=== PATIENT | male | born 1980 | race Caucasian/White ===

== ENCOUNTER 2016-11-06 09:35 | Emergency (ER) | payer MEDICARE ==
[~2016-11-06] VITALS: Ht 190.5 cm; Wt 95.3 kg
[~2016-11-06 09:35] MED LIST: ACYCLOVIR400 MG PO; ALBUTEROL0.09 MG/A1 INH; AMOXICILLIN500 M2 PO; ATARAX,VISTARIL50 MG PO; BACTRIM DS 8001 TA1 PO; BACTROBAN OINT22 GM PO; BAYER ASPIRIN C81 MG PO; CATAFLAM50 MG PO; CIPROFLOXACIN500 MG PO; Cleocin150 MG PO; DICLOFENAC POTA50 MG PO; EPI-PEN1 MG/ML MR; FLEXERIL10 MG PO; FLEXERIL5 MG PO; HYDROCODONE BIT1 T11 PO; HYDROXYZINE PAM50 MG PO; IBU800 MG PO; KEFLEX500 MG PO; LIDEX 0.05% CRE15 GM T; MEDROL DOSEPAK4 MG PO; MOTRIN800 MG PO; NAPROSYN500 MG PO; NKHM; ONDANSETRON HYDR4 M1 PO; PENICILLIN-VK500 MG PO; PEPCID20 MG PO; PERCOCET 325 MG1 TA5 PO; PREDNISONE50 MG PO; PREVACID30 MG PO; ROBAXIN750 MG PO; SINEMET 25-100M1 TAB PO; SKELAXIN400 MG PO; TRAMADOL HCL50 MG PO; ULTRAM50 MG PO; VALIUM5 MG PO; VIBRAMYCIN100 MG PO; VICODIN 5/500 505 MG PO; VICODIN 500 MG-1 TAB PO; VICODIN ES 7501 TAB PO; ZANTAC150 MG PO; ZOFRAN ODT4 MG SL; ZOVIRAX400 MG PO
[2016-11-06] MEDS ORDERED: Bactroban Oint22 GM T (09:45)
[2016-11-06] MEDS ORDERED: KEFLEX500 M1 PO (09:45)
[2016-11-06] MEDS ORDERED: Bactrim DS PO (09:45)
== END 2016-11-06 10:05 | disposition home or self-care (01) ==
LOC: ED 09:35
DX: L02.414 Cutaneous abscess of left upper limb (principal); R03.0 Elevated blood-pressure reading, without diagnosis of hypertension; F17.200 Nicotine dependence, unspecified, uncomplicated

== ENCOUNTER 2020-09-25 15:16 | Emergency (ER) | payer MEDICARE, MEDICAID ==
[~2020-09-25] VITALS: Wt 95.3 kg
[~2020-09-25 15:16] MED LIST changes: +Bactrim DS PO; +Bactroban Oint22 GM T; +KEFLEX500 M1 PO
[2020-09-25] MEDS ORDERED: PREDNISONE10 MG PO ×2 (17:29)
== END 2020-09-25 17:38 | disposition home or self-care (01) ==
LOC: ED 15:16
DX: L23.1 Allergic contact dermatitis due to adhesives (principal); R07.81 Pleurodynia; F17.200 Nicotine dependence, unspecified, uncomplicated; Z79.2 Long term (current) use of antibiotics; Z79.899 Other long term (current) drug therapy; Z98.890 Other specified postprocedural states

== ENCOUNTER 2020-10-21 02:41 | Emergency (ER) | payer MEDICARE, MEDICAID ==
[~2020-10-21] VITALS: Ht 190.5 cm; Wt 99.8 kg
[~2020-10-21 02:41] MED LIST changes: +PREDNISONE10 MG PO
== END 2020-10-21 05:30 | disposition home or self-care (01) ==
LOC: ED 02:41
DX: L23.7 Allergic contact dermatitis due to plants, except food (principal); F32.9 Major depressive disorder, single episode, unspecified; F41.9 Anxiety disorder, unspecified; Z79.2 Long term (current) use of antibiotics; Z79.899 Other long term (current) drug therapy; Z98.890 Other specified postprocedural states

== ENCOUNTER 2020-10-24 17:37 | Emergency (ER) | payer MEDICARE, MEDICAID ==
[~2020-10-24] VITALS: Ht 190.5 cm; Wt 95.3 kg
[2020-10-24] MEDS ORDERED: DOXYCYCLINE100 M3 PO (21:10)
[2020-10-24] MEDS ORDERED: IBUPROFEN600 MG PO (21:10)
== END 2020-10-25 00:10 | disposition home or self-care (01) ==
LOC: ED 17:37
DX: L02.416 Cutaneous abscess of left lower limb (principal); F17.200 Nicotine dependence, unspecified, uncomplicated

== ENCOUNTER 2020-12-30 13:56 | Emergency (ER) | payer MEDICARE, MEDICAID ==
[~2020-12-30] VITALS: Ht 190.5 cm; Wt 95.3 kg
[~2020-12-30 13:56] MED LIST changes: +DOXYCYCLINE100 M3 PO; +IBUPROFEN600 MG PO
== END 2020-12-30 17:49 | disposition left against medical advice (07) ==
LOC: ED 13:56
DX: R10.9 Unspecified abdominal pain (principal); Z53.21 Procedure and treatment not carried out due to patient leaving prior to being seen by health care provider

== ENCOUNTER 2021-01-10 09:31 | Emergency (ER) | payer MEDICARE, MEDICAID ==
[~2021-01-10] VITALS: Ht 190.5 cm; Wt 90.7 kg
[2021-01-10] MEDS ORDERED: MIRALAX POWDER17 G1 PO (10:04)
[2021-01-10] MEDS ORDERED: NAPROXEN250 MG PO (10:04)
[2021-01-10] MEDS ORDERED: TYLENOL325 M1 PO (10:04)
== END 2021-01-10 11:00 | disposition home or self-care (01) ==
LOC: ED 09:31
DX: G89.29 Other chronic pain (principal); R10.32 Left lower quadrant pain; F11.90 Opioid use, unspecified, uncomplicated

== ENCOUNTER 2021-08-14 21:23 | Emergency (ER) | payer MEDICARE, MEDICAID ==
[~2021-08-14 21:23] MED LIST changes: +MIRALAX POWDER17 G1 PO; +NAPROXEN250 MG PO; +TYLENOL325 M1 PO
[2021-08-14] MEDS ORDERED: CLINDAMYCIN HC300 MG PO (23:45)
== END 2021-08-14 23:58 | disposition left against medical advice (07) ==
LOC: ED 21:23
DX: L03.114 Cellulitis of left upper limb (principal)

== ENCOUNTER 2021-09-23 08:15 | Inpatient (IN) | payer MEDICARE, MEDICAID ==
[~2021-09-23] VITALS: Ht 190.5 cm; Wt 84.2 kg
[~2021-09-23 08:15] MED LIST changes: +CLINDAMYCIN HC300 MG PO
[2021-09-23 08:24] VITALS: BP 132/93
[2021-09-23 09:34] LABS: BASO % 0.2 % (0.0-1.0); EOS % 0.3 % (1.0-4.0); HEMATOCRIT 39.8 % (42.0-52.0); LYMPH # 1.1 10*3/uL (1.3-4.4); LYMPH % 7.7 % (27.0-41.0); MEAN CELL VOLUME 85.8 fl (80.0-94.0); MEAN CORPUSCULAR HGB 28.4 pg (27.0-31.0); MEAN CORPUSCULAR HGB CONC 33.2 g/dl (33.0-37.0); MEAN PLATELET VOLUME 10.7 fl (9.6-12.3); MONO # 0.7 10*3/uL (0.1-1.0); MONO % 4.8 % (3.0-9.0); NEUT # 12.4 10*3/uL (2.3-7.9); NEUT % 86.7 % (47.0-73.0); PLATELET COUNT AUTOMATED 192 10*3/uL (130-400); RED BLOOD COUNT 4.64 10*6/uL (4.50-5.90); RED CELL DISTRI WIDTH 13.2 % (0-14.5); WHITE BLOOD COUNT 14.3 10*3/uL (4.8-10.8)
[2021-09-23 09:44] LABS: ACT PARTIAL THROMBO TIME 32.8 SECONDS (20.0-32.1)
[2021-09-23 09:50] LABS: ALKALINE PHOSPHATASE 92 U/L (45-117); BUN 15 mg/dl (7-24); CHLORIDE 102 mmol/L (98-107); CREATININE 0.65 mg/dL (0.70-1.30); LIPASE 83 U/L (73-393); POTASSIUM 3.7 mmol/L (3.5-5.1); SGOT/AST 26 IU/L (3-35); SGPT/ALT 33 U/L (12-78); SODIUM 134 mmol/L (136-145)
[2021-09-23 12:38] VITALS: BP 114/59
[2021-09-23 13:16] LABS: CSF RBC < 1000 /uL; CSF WBC 1 /uL
[2021-09-23 13:24] LABS: CSF GLUCOSE 59 mg/dL (40-70); CSF TOTAL PROTEIN 55.5 mg/dL (15-45)
[2021-09-23 13:51] LABS: CLARITY CLEAR; COLOR COLORLESS; CSF LYMPHOCYTES 74 % (40-80); CSF MONOCYTES 26 % (15-45)
[2021-09-23 16:17] VITALS: BP 124/71
[2021-09-23 20:03] VITALS: BP 141/85
[2021-09-23 21:30] VITALS: BP 132/75
[2021-09-24] VITALS: BP 105/62
[2021-09-24 06:27] LABS: ACT PARTIAL THROMBO TIME 32.5 SECONDS (20.0-32.1); INTERNATIONAL NORM RATIO 1.1 (2.0-3.5)
[2021-09-24 06:28] LABS: HEMATOCRIT 40.5 % (42.0-52.0); MEAN CORPUSCULAR HGB 28.2 pg (27.0-31.0); MEAN CORPUSCULAR HGB CONC 32.8 g/dl (33.0-37.0); PLATELET COUNT AUTOMATED 204 10*3/uL (130-400); RED BLOOD COUNT 4.71 10*6/uL (4.50-5.90); RED CELL DISTRI WIDTH 13.3 % (0-14.5); WHITE BLOOD COUNT 17.6 10*3/uL (4.8-10.8)
[2021-09-24 06:39] LABS: MANUAL DIFF REFLEX YES
[2021-09-24 06:43] LABS: ALKALINE PHOSPHATASE 67 U/L (45-117); BUN 14 mg/dl (7-24); CHLORIDE 105 mmol/L (98-107); CHOLESTEROL 140 mg/dL (<200); CREATININE 0.74 mg/dL (0.70-1.30); FREE T4 1.94 ng/dl (0.76-1.46); LDL CHOLESTEROL 75 mg/dL (9-159); POTASSIUM 4.1 mmol/L (3.5-5.1); SGOT/AST 15 IU/L (3-35); SGPT/ALT 25 U/L (12-78); SODIUM 138 mmol/L (136-145); TRIGLYCERIDES 36 mg/dl (<150)
[2021-09-24 06:48] LABS: THYROID STIM HORMONE (HS) 0.181 uIU/ml (0.358-4.75)
[2021-09-24 08:00] VITALS: BP 117/63
[2021-09-24 08:06] LABS: BURR CELLS FEW; PLATELET SUFFICIENCY NORMAL (NORMAL); TOTAL CELLS COUNTED 100 #CELLS
[2021-09-24 10:08] LABS: HBSAG Negative (Negative); HEP B CORE AB, IGM Negative (Negative)
[2021-09-26 17:06] LABS: HEPATITIS C ANTIBODY >11.0 (0.0-0.9)
== END 2021-09-24 12:03 | disposition left against medical advice (07) | DRG 551 ==
LOC: ED 08:15 → EDHOLD 14:45 → 5E 21:12
PROVIDERS: Emergency Medicine; Student in an Organized Health Care Education/Training Program; ADMIT Internal Medicine; ATTEND Internal Medicine
PROC: 009U3ZX Drainage of Spinal Canal, Percutaneous Approach, Diagnostic (ICD-10-PCS; principal; 2021-09-23)
DX: M54.2 Cervicalgia (principal); G03.0 Nonpyogenic meningitis; R65.10 Systemic inflammatory response syndrome (SIRS) of non-infectious origin without acute organ dysfunction; E44.0 Moderate protein-calorie malnutrition; E87.0 Hyperosmolality and hypernatremia; G89.4 Chronic pain syndrome; F41.9 Anxiety disorder, unspecified; F32.9 Major depressive disorder, single episode, unspecified; R10.32 Left lower quadrant pain; Z96.7 Presence of other bone and tendon implants; D72.829 Elevated white blood cell count, unspecified; F11.90 Opioid use, unspecified, uncomplicated; M48.02 Spinal stenosis, cervical region; Z53.29 Procedure and treatment not carried out because of patient's decision for other reasons; E87.6 Hypokalemia; T50.905A Adverse effect of unspecified drugs, medicaments and biological substances, initial encounter; M43.22 Fusion of spine, cervical region; Z98.890 Other specified postprocedural states; Y92.89 Other specified places as the place of occurrence of the external cause; Z68.23 Body mass index [BMI] 23.0-23.9, adult

== ENCOUNTER 2021-10-04 20:38 | Emergency (ER) | payer MEDICARE, MEDICAID ==
[~2021-10-04] VITALS: Ht 190.5 cm; Wt 88.5 kg
== END 2021-10-04 22:37 | disposition left against medical advice (07) ==
LOC: ED 20:38
DX: M54.2 Cervicalgia (principal); R20.0 Anesthesia of skin; R20.2 Paresthesia of skin; Z98.890 Other specified postprocedural states; Z87.891 Personal history of nicotine dependence

== ENCOUNTER → 2022-01-23 | Outpatient (CLI) | payer OTHER | END | disposition home or self-care (01) | LOC: MRI 09:29 | PROVIDERS: ATTEND Student in an Organized Health Care Education/Training Program | DX: M47.812 Spondylosis without myelopathy or radiculopathy, cervical region (principal); M40.292 Other kyphosis, cervical region; G06.2 Extradural and subdural abscess, unspecified; L02.11 Cutaneous abscess of neck ==

== ENCOUNTER → 2022-08-01 | Outpatient (CLI) | payer OTHER | END | disposition home or self-care (01) | LOC: CT 00:01 | PROVIDERS: ATTEND Surgery | DX: R10.9 Unspecified abdominal pain (principal) ==

== ENCOUNTER 2022-12-10 22:13 | Emergency (ER) | payer MEDICAID ==
[~2022-12-10] VITALS: Ht 190.5 cm; Wt 99.8 kg
[2022-12-11] MEDS ORDERED: CEPHALEXIN500 M1 PO ×2 (00:21)
== END 2022-12-11 00:27 | disposition home or self-care (01) ==
LOC: ED 22:13
DX: M25.561 Pain in right knee (principal); L03.115 Cellulitis of right lower limb; F32.A Depression, unspecified; F41.9 Anxiety disorder, unspecified; Z98.890 Other specified postprocedural states; F17.200 Nicotine dependence, unspecified, uncomplicated; F10.10 Alcohol abuse, uncomplicated

== ENCOUNTER 2022-12-11 06:47 | Emergency (ER) | payer MEDICAID ==
[~2022-12-11] VITALS: Ht 190.5 cm; Wt 102.1 kg
[~2022-12-11 06:47] MED LIST changes: +CEPHALEXIN500 M1 PO
[2022-12-11 07:52] LABS: BASO % 0.2 % (0.0-1.0); HEMATOCRIT 38.7 % (42.0-52.0); LYMPH # 0.8 10*3/uL (1.3-4.4); LYMPH % 4.5 % (27.0-41.0); MEAN CELL VOLUME 84.5 fl (80.0-94.0); MEAN CORPUSCULAR HGB 29.9 pg (27.0-31.0); MEAN CORPUSCULAR HGB CONC 35.4 g/dl (33.0-37.0); MEAN PLATELET VOLUME 10.8 fl (9.6-12.3); MONO # 1.3 10*3/uL (0.1-1.0); MONO % 7.2 % (3.0-9.0); NEUT # 15.9 10*3/uL (2.3-7.9); NEUT % 87.6 % (47.0-73.0); PLATELET COUNT AUTOMATED 176 10*3/uL (130-400); RED BLOOD COUNT 4.58 10*6/uL (4.50-5.90); RED CELL DISTRI WIDTH 13.1 % (0-14.5); WHITE BLOOD COUNT 18.1 10*3/uL (4.8-10.8)
[2022-12-11 08:16] LABS: ALKALINE PHOSPHATASE 90 U/L (46-116); BUN 32 mg/dl (9-23); CHLORIDE 100 mmol/L (98-107); POTASSIUM 3.7 mmol/L (3.4-5.1); SGPT/ALT 80 U/L (10-49); TOTAL PROTEIN 6.9 gm/dL (6.0-8.0)
[2022-12-11 08:20] LABS: ETHYL ALCOHOL < 3.0 mg/dl (<3)
[2022-12-11 10:05] LABS: BILIRUBIN Negative (Negative); BLOOD Trace-Lysed (Negative); CLARITY Clear (Clear); COLOR Yellow (Yellow); GLUCOSE Negative (Negative); KETONE 1+ (Negative); LEUKO ESTERASE Negative (Negative); NITRITE Negative (Negative); SPECIFIC GRAVITY 1.025 (1.001-1.030)
[2022-12-11 10:13] LABS: URINE AMPHETAMINES Positive (1000ng/ml); URINE BARBITURATES Negative (200ng/ml); URINE BENZODIAZEPINES Negative (200ng/ml); URINE CANNABINOIDS (THC) Negative (50ng/ml); URINE COCAINE Positive (300ng/ml); URINE METHADONE Negative (300ng/ml); URINE OPIATES Positive (300ng/ml); URINE PHENCYCLIDINE Negative (25ng/ml)
[2022-12-11 10:27] LABS: BACTERIA TRACE; EPITHELIAL CELLS 0-2
== END 2022-12-11 11:31 | disposition home or self-care (01) ==
LOC: ED 06:47
PROVIDERS: Emergency Medicine
DX: F32.A Depression, unspecified (principal); F19.10 Other psychoactive substance abuse, uncomplicated; F17.210 Nicotine dependence, cigarettes, uncomplicated; Z98.890 Other specified postprocedural states

== ENCOUNTER 2025-01-11 22:36 | Emergency (ER) | payer MEDICAID ==
[~2025-01-11] VITALS: Ht 190.5 cm; Wt 90.7 kg
[2025-01-11 23:55] LABS: BASO # 0.0 10*3/uL (0.0-0.1); BASO % 0.4 % (0.0-1.0); EOS # 0.1 10*3/uL (0.0-0.4); EOS % 2.5 % (1.0-4.0); MEAN CELL VOLUME 87.7 fl (80.0-94.0); MEAN CORPUSCULAR HGB 29.5 pg (27.0-31.0); MEAN PLATELET VOLUME 11.2 fl (9.6-12.3); MONO # 0.5 10*3/uL (0.1-1.0); MONO % 9.2 % (3.0-9.0); NEUT # 3.2 10*3/uL (2.3-7.9); NEUT % 56.8 % (47.0-73.0); NUCLEATED RED BLOOD CELL 0.0 % (0.0-0.0); NUCLEATED RED BLOOD CELL 0.0 10*3/uL (0.0-0.0); PLATELET COUNT AUTOMATED 136 10*3/uL (130-400); RED CELL DISTRI WIDTH 13.4 % (0-14.5)
[2025-01-12 00:13] LABS: BUN 18 mg/dl (9-23); CPK 328 U/L (34-171)
[2025-01-12 03:08] LABS: BILIRUBIN Negative (Negative); BLOOD Negative (Negative); CLARITY Clear (Clear); COLOR Dark Yellow (Yellow); KETONE 1+ (Negative); LEUKO ESTERASE Trace (Negative); NITRITE Negative (Negative); PH 6.0 (4.5-8.0); SPECIFIC GRAVITY >= 1.030 (1.001-1.030); UROBILINOGEN 1.0 E.U./dl (0.0-1.0)
[2025-01-12 03:15] LABS: URINE AMPHETAMINES Positive (1000ng/ml); URINE BARBITURATES Negative (200ng/ml); URINE BENZODIAZEPINES Negative (200ng/ml); URINE CANNABINOIDS (THC) Negative (50ng/ml); URINE COCAINE Positive (300ng/ml); URINE METHADONE Negative (300ng/ml); URINE OPIATES Negative (300ng/ml); URINE PHENCYCLIDINE Negative (25ng/ml)
[2025-01-12 03:25] LABS: MUCOUS 1+
[2025-01-12 03:26] LABS: BACTERIA TRACE
[2025-01-12] MEDS ORDERED: diazePAM 5 MG TAB PO ONE (11:55)
[2025-01-12] MEDS ORDERED: LORazepam 2 MG/ML VIAL IM ONE (19:30)
[2025-01-13] MEDS ORDERED: LORazepam 2 MG/ML VIAL IM ONE ×3 (07:35→22:05)
[2025-01-13] MEDS ORDERED: diazePAM 5 MG TAB PO ONE ×2 (12:15→15:55)
== END 2025-01-15 11:10 | disposition home or self-care (01) ==
LOC: ED 22:36
PROVIDERS: Emergency Medicine
DX: F19.10 Other psychoactive substance abuse, uncomplicated (principal); F43.21 Adjustment disorder with depressed mood; F41.9 Anxiety disorder, unspecified; F32.A Depression, unspecified; Z98.890 Other specified postprocedural states

== ENCOUNTER 2025-02-09 17:51 | Emergency (ER) | payer MEDICAID ==
[~2025-02-09] VITALS: Ht 190.5 cm; Wt 90.7 kg
[2025-02-09] MEDS ORDERED: Lidocaine Hydrochloride 2% 10 ML AMP SC ONE (18:25)
[2025-02-09] MEDS ORDERED: Lidocaine Hydrochloride 2 ML AMP SC ONE (18:30)
[2025-02-09] MEDS ORDERED: CEFDINIR 300 MG CAP PO ONE (18:40)
[2025-02-09] MEDS ORDERED: Sulfamethoxazole/Trimethopri 1 TAB TAB PO ONE (18:40)
[2025-02-09] MEDS ORDERED: SEPTDS PO (18:50)
[2025-02-09] MEDS ORDERED: OMNICEF300 MG PO (18:50)
== END 2025-02-09 19:54 | disposition home or self-care (01) ==
LOC: ED 17:51
DX: L02.414 Cutaneous abscess of left upper limb (principal); F19.10 Other psychoactive substance abuse, uncomplicated; F41.9 Anxiety disorder, unspecified; F32.A Depression, unspecified; F17.210 Nicotine dependence, cigarettes, uncomplicated; Z98.890 Other specified postprocedural states; Z86.19 Personal history of other infectious and parasitic diseases